=== PATIENT | female | born 1960 | race Caucasian/White ===

== ENCOUNTER 2016-11-07 09:40 | Day surgery (SDC) | payer OTHER ==
[2016-11-06 15:27] VITALS: BMI 24.6
[2016-11-07 10:46] VITALS: TEMP 97.5
[2016-11-07 11:10] VITALS: BP 102/60; PULSE 48
--- NOTE | 2016-11-08 14:17 | PATH ---
Surgical Pathology Report Patient Name: NATHANIEL RAMSAY [facility]. Rec. #: [id number] /Age/Gender: 1960 (Age: 56) / F Account: [id number] Location: ASU-ENDOSCOPY Taken: 11/07/2016 Received: 11/07/2016 Reported: 11/08/2016 Physicians: Loida Pleitez M.D. Specimen(s) Received BX RECTAL POLYP Clinical History History of adenoma Rectal polyp Final Diagnosis RECTUM, POLYP, BIOPSY: FRAGMENTS OF HYPERPLASTIC POLYP. Electronically Signed Peyman Mcarthur M.D. Gross Description Received in formalin, labeled "biopsy rectal polyp" are 2 sheets, irregular portions of soft tissue measuring 0.4 and 0.6 cm in greatest dimension. The specimens are submitted in toto in one cassette. /11/07/2016 saudi11/07/2016
== END 2016-11-07 12:10 | disposition home or self-care (01) ==
LOC: JASU-ENDO 09:40
PROVIDERS: ATTEND Internal Medicine Gastroenterology
PROC: 0DBP8ZX Excision of Rectum, Via Natural or Artificial Opening Endoscopic, Diagnostic (ICD-10-PCS; principal; 2016-11-07 10:00)
DX: Z86.010 Personal history of colon polyps (principal); K62.1 Rectal polyp
CPT/HCPCS: 88305-TC

== ENCOUNTER → 2019-05-25 | Day surgery (SDC) | payer OTHER ==
--- NOTE | 2019-05-29 16:43 | PATH ---
Surgical Pathology Report Patient Name: NATHANIEL RAMSAY [facility]. Rec. #: [id number] /Age/Gender: 1960 (Age: 58) / F Account: [id number] Location: RADIOLOGY INTER Taken: 05/25/2019 Received: 05/26/2019 Reported: 05/29/2019 Physicians: Wendy England M.D. Specimen(s) Received LEFT BREAST CORE BIOPSY Clinical History Mammographic findings/ultrasound findings: Highly suspicious/malignant 1.8 cm Final Diagnosis BREAST, LEFT, 11:00, ULTRASOUND GUIDED CORE BIOPSY: INVASIVE LOBULAR CARCINOMA, MODERATELY DIFFERENTIATED, CLASSICAL AND TRABECULAR TYPES, MEASURING AT LEAST 1 CM IN THIS MATERIAL. SEE COMMENT. Comment: Immunohistochemical stain performed and interpreted at [facility] show the invasive carcinoma have areas of weak cytoplasmic and focally weak membranous staining. This is seen in a subset of lobular carcinoma. Additional immunohistochemical stain performed at [place], [place] ([id number]) and interpreted at [facility] show strong cytoplasmic staining for p120. Overall histomorphology and immunophenotype are supportive of lobular differentiation. Case discussed with Dr. England. Results of Estrogen Receptor (ER) and Progesterone Receptor (MT) studies performed at [facility] are as follows: ER (clone [id number] mouse monoclonal antibody by [employer]): >95 % nuclear staining with strong intensity (Positive). MT (clone16 mouse monoclonal antibody by [employer]ica): ~2-3% nuclear staining with moderate intensity (Low Positive). Positive and negative controls (internal if applicable) show appropriate results. Formalin fixation and cold ischemic times are within current ASCO/CAP recommendations for ER, MT and Her2 testing. Results of Her2 (IHC) & Ki-67 studies performed at [facility] [place], [place] ([id number]) are as follows: Her2 IHC (EP3 from [employer], formerly known as [id number], using Britt Polymer Refine detection kit): 1+ (Negative). Ki-67: ~10% (Low proliferative index). Positive and negative controls (internal if applicable) show appropriate results. Electronically Signed Michelle Cui M.D. Gross Description Received in formalin labeled "left 11:00" are 3 sheets portions of fibroadipose tissue ranging from 0.7 x 0.2 x 0.1 cm to 0.9 x 0.3 x 0.2 cm. The specimens are submitted in toto in one cassette. Time to formalin fixation: Less than one minute Total formalin fixation time: Approximately 19 hours. 05/26/201905/26/2019
== END | disposition home or self-care (01) ==
LOC: JMAMMO-SUR 12:19
PROVIDERS: ATTEND Internal Medicine
PROC: 0HBU3ZX Excision of Left Breast, Percutaneous Approach, Diagnostic (ICD-10-PCS; principal; 2019-05-25)
DX: C50.912 Malignant neoplasm of unspecified site of left female breast (principal); N63.22 Unspecified lump in the left breast, upper inner quadrant
CPT/HCPCS: 19083; 77065-TC; 87899; 88305-TC; 88342-TC; A4648

== ENCOUNTER 2019-06-30 08:35 | Day surgery (SDC) | payer OTHER ==
[2019-06-26 11:15] VITALS: BMI 24.7
--- NOTE | 2019-06-29 12:54 | HP ---
Admitting History and Physical - Primary Care Physician PCP: Spike Allison - Admission Chief Complaint: left breast cancer History of Present Illness: Patient is a 58 yo female noted to have left breast mass on mammo and US at the 11 o'clock position approx 1.8 cm. 2 cm from the nipple. The patient underwent an US guided core bx on 05/25 which was c/w mod diff invasive lobular cancer ER pos PA psos. The patient had an MRi that was c/w known cancer as well as cystic mass between the dome of the liver and inferior right chest cage. CT scan was c/w a right pericardial cyst as well as a right lobe cyst. Patient is now presenting for a left breast WE, snbx and lymph with NL. History Source: Patient Limitations to Obtaining History: No Limitations - Past Medical History Renal/: Yes: Renal Calculi ...: No - Smoking History Smoking history: Never smoked Have you smoked in the past 12 months: No - Alcohol/Substance Use Hx Alcohol Use: Yes (SOCIALLY) Home Medications - Allergies Allergies/Adverse Reactions: Allergies Allergy/AdvReac Type Severity Reaction Status Date / Time No Known Allergies Allergy Verified 11/06/16 15:15 - Home Medications Home Medications: Ambulatory Orders Biotin 10 mg PO DAILY 06/26/19 Melatonin 10 mg PO HS 06/26/19 Multivitamins [Tab-A-Vit -] 1 tab PO DAILY 06/26/19 Family Medical History Family Hx Cancer: Mother (breast cancer at 70) Review of Systems - Review of Systems Constitutional: reports: No Symptoms Cardiovascular: reports: No Symptoms Respiratory: reports: No Symptoms Physical Examination Constitutional: Yes: Well Nourished, Calm Breast(s): Yes: Other (Moderately ptotic full C-cup breasts with some mild bruising noted in the left UIQ. Palpable 2 cm mass noted in the upper inner quad without any other suspicious masses or adenopathy noted.) Problem List - Problems (1) Breast cancer, left Code(s): C50.912 - MALIGNANT NEOPLASM OF UNSPECIFIED SITE OF LEFT FEMALE BREAST Qualifiers: Breast location: upper inner quadrant of breast Estrogen receptor status: positive Patient sex: female Qualified Code(s): C50.212 - Malignant neoplasm of upper-inner quadrant of left female breast; Z17.0 - Estrogen receptor positive status [ER+] Assessment/Plan Plan Left breast WE with NL, snbx, poss ANDx lympho
[2019-06-30] MEDS ORDERED: ISOSULFAN BLUE 10 MG/ML VIAL SQ ONE (14:17)
[2019-06-30] MEDS ORDERED: MIDAZOLAM HCL 2 MG/2 ML SINGLE DOSE VIAL ONE (14:44)
[2019-06-30] MEDS ORDERED: PROPOFOL 20 ML ONE ×2 (15:03)
[2019-06-30] MEDS ORDERED: ceFAZolin SODIUM 1 GM VIAL ONE ×2 (15:08)
[2019-06-30] MEDS ORDERED: BUPIVACAINE HCL 0.25% 125 MG/50 ML VIAL ONE (16:33)
[2019-06-30] MEDS ORDERED: GUM MASTIC/STORAX/MSAL/ALCOHOL 1 DRP DROPSBTL MC ONE (16:38)
[2019-06-30] MEDS ORDERED: BUPIVACAINE HCL/PF 0.25% (2.5MG/ML) 10 ML VIAL IJ ONE (16:43)
[2019-06-30] MEDS ORDERED: DEXAMETHASONE SOD PHOSPHATE 4 MG/1 ML VIAL ONE (16:45)
[2019-06-30] MEDS ORDERED: ONDANSETRON 4 MG/2 ML VIAL ONE ×2 (16:45→17:05)
[2019-06-30] MEDS ORDERED: oxyCODONE HCL 5 MG TABLET PO PRN ×2 (16:59)
[2019-06-30] MEDS ORDERED: PROMETHAZINE HCL 25 MG/1 ML VIAL IVPUSH PRN (16:59)
[2019-06-30] MEDS ORDERED: ONDANSETRON 4 MG/2 ML VIAL IVPUSH PRN ×2 (16:59→17:07)
[2019-06-30] MEDS ORDERED: KETOROLAC TROMETHAMINE 30 MG/1 ML VIAL IVPUSH PRN (17:07)
[2019-06-30] MEDS ORDERED: DEXTROSE 5%-0.45% SALINE 1,000 ML IV SCH (17:15)
[2019-06-30] MEDS ORDERED: KETOROLAC TROMETHAMINE 30 MG/1 ML VIAL ONE (17:15)
[2019-06-30] MEDS ORDERED: oxyCODONE HCL 5 MG TABLET ONE (17:52)
[2019-06-30 17:55] VITALS: TEMP 98.5
[2019-06-30 18:35] VITALS: BP 143/73; PULSE 90
--- NOTE | 2019-06-30 20:13 | OP ---
DATE OF OPERATION: 06/30/2019 PREOPERATIVE DIAGNOSIS: Left breast cancer, upper inner quadrant. POSTOPERATIVE DIAGNOSIS: Left breast cancer, upper inner quadrant. PROCEDURE: Left breast partial mastectomy with mammographic needle localization and left axillary sentinel lymph node biopsy with 5 x 4 cm tissue transfer closure. ANESTHESIA: Laryngeal mask airway anesthesia. PRIMARY SURGEON: Bernardo Allison MD SEAT MAKER: JENNA Turner COMPLICATIONS: There were no complications. DESCRIPTION OF PROCEDURE: Briefly, the patient is a 58-year-old G1, P0, postmenopausal female of [place] descent with a family history with her mother who had breast cancer in her 70s. The patient was felt to have a left breast upper inner quadrant mass, which was then confirmed on mammography and ultrasound on May 13, 2019, with a 1.8 x 1.8 x 1.6 cm mass in the left breast upper inner quadrant 2 cm from the nipple. Ultrasound guided core biopsy performed in May 2019 showed a moderately differentiated invasive lobular cancer, which was ER/[place] negative, HER2/christelle negative. Patient had an MRI, which did show a pericardial cyst, which was benign. She was offered entrance into the target B trial and agreed and was randomized external beam radiation. The patient is brought in for the procedure on June 30, 2019. She first underwent a lymphoscintigraphy with a periareolar injection of technetium 99 performed at [facility] prior to procedure. She then underwent a needle localization of the cancer in the left breast upper inner quadrant. She was brought to the [place] holding area. In the holding area, site verification was made, and informed consent was obtained. She was brought into the operating room and laid on the OR table in the supine position. Venodynes were placed on the lower extremities prior to induction. She received 2 g of Ancef prior to incision. She underwent general laryngeal mask airway anesthesia. The left breast was thoroughly prepped and draped in the usual fashion with the wire prepped in the field, and 3 mL of Lymphazurin blue were injected intradermally around the left breast nipple areolar complex. Timeout was performed. At this point, the left axillary sentinel lymph node biopsy was first performed. An incision was made just below the hair-bearing area of the left axilla, and dissection was undertaken, and blue lymphatic was easily seen coursing to a blue hot lymph node in the level 1 region of the left axilla with a 10-second gamma count of 1259. The 2nd adjacent lymph node was seen to this in the level 1 region with a 10-second gamma count of 362. Both of these nodes were also blue, grossly negative, and sent to pathology in formalin for permanent section. Background count after removal of these 2 nodes was 13, and there were no other blue or hot nodes found. Hemostasis was achieved, and the axilla wound was closed using interrupted 2-0 plain suture, and then an interrupted 3-0 deep dermal Vicryl suture, and a running 4-0 subcuticular Biosyn suture. At this point, the wide excision was undertaken around the upper inner aspect of the left breast through a periareolar incision around the upper inner periareolar border. Dissection was undertaken around the needle localization site, and the breast tissue was completely removed from around the wire, all the way down to the pectoralis major muscle. The specimen was removed and oriented with the long lateral, short superior suture, and specimen radiograph showed removal of the clip in question. At this point, separate margins were taken on the superior, inferior, medial, lateral, deep, and anterior margins with a suture marking the biopsy cavity side. All margins were sent separately to pathology in formalin. At this point, a 5 x 4 cm tissue transfer closure was accomplished by undermining the breast tissue and bringing it into the defect. The breast tissue was reapproximated using 2-0 plain suture. The skin was closed using interrupted 3-0 deep dermal Vicryl suture and a running 4-0 subcuticular Biosyn suture. Mastisol and Steri-Strips were applied over the axillary wound and the breast wound, and she was placed in a surgical bra postoperatively. The patient tolerated the procedure well without difficulty, and estimated blood loss was minimal, and all sponge and needle counts were correct at the end of the case. The patient will be recovered in the post anesthesia care unit and discharged home until discharge criteria are met. She is to follow up in the office in 1 week for formal wound pathology check. BERNARDO ALLISON M.D. [id number]
--- NOTE | 2019-07-03 10:56 | PATH ---
Surgical Pathology Report Patient Name: NATHANIEL RAMSAY Med. Rec. #: [id number] /Age/Gender: 1960 (Age: 58) / F Account: [id number] Location: [facility] Taken: 06/30/2019 Received: 06/30/2019 Reported: 07/03/2019 Physicians: Spike Allison M.D. Specimen(s) Received A: LEFT AXILLARY SENTINEL NODE #1 B: LEFT AXILLARY SENTINEL NODE #2 C: LEFT BREAST WIDE EXCISION D: LEFT BREAST SUPERIOR MARGIN E: LEFT BREAST LATERAL MARGIN F: LEFT BREAST INFERIOR MARGIN G: LEFT BREAST MEDIAL MARGIN H: LEFT BREAST DEEP MARGIN I: LEFT BREAST ANTERIOR MARGIN Clinical History Left breast upper inner quadrant ILC Final Diagnosis A. LEFT BREAST AXILLARY SENTINEL LYMPH NODE #1, EXCISION: ONE LYMPH NODE, NEGATIVE FOR METASTATIC CARCINOMA ON H&E STAIN SECTIONS AND CYTOKERATIN AE1/AE3 IMMUNOSTAINS PERFORMED AT [facility] (0/1). B. LEFT AXILLARY SENTINEL LYMPH NODE #2, EXCISION: ONE LYMPH NODE, NEGATIVE FOR METASTATIC CARCINOMA ON H&E STAIN SECTIONS AND CYTOKERATIN AE1/AE3 IMMUNOSTAINS PERFORMED AT [facility] (0/1). C. LEFT BREAST, WIDE EXCISION: INVASIVE LOBULAR CARCINOMA, SHOWING TRABECULAR, SOLID AND FOCAL PLEOMORPHIC FEATURES, MODERATELY DIFFERENTIATED (TUBULE SCORE 3/3, NUCLEAR GRADE: 2/3, MITOTIC SCORE: 2/3, TOTAL SCORE 7/9, TOLU GRADE 2), MEASURING 2.1 CM IN GREATEST DIMENSION, MICROSCOPICALLY. LOBULAR CARCINOMA IN SITU (LCIS) PRESENT, CLASSICAL TYPE. SURGICAL MARGINS ARE UNINVOLVED BY CARCINOMA. INVASIVE CARCINOMA IS AT LESS THAN 1 MM FROM THE CLOSEST (ANTERIOR) MARGIN. ALSO SEE SPECIMENS D TO I FOR FINAL MARGINS. NO LYMPHOVASCULAR INVASION IS IDENTIFIED. PERINEURAL INVASION IDENTIFIED. PRIOR BIOPSY SITE WITH REACTIVE CHANGES. PATHOLOGIC STAGE (pTNM): pT2, pN(sn)0 SEE ALSO INVASIVE CARCINOMA CASE SUMMARY BELOW. Comment: Immunohistochemical stain E-Cadherin (block C1) performed and interpreted at [facility] shows complete or focal loss of the membranous staining in the carcinoma, supports lobular phenotype. D. LEFT BREAST SUPERIOR MARGIN, EXCISION: BREAST TISSUE WITH FOCAL ATYPICAL LOBULAR HYPERPLASIA. NEGATIVE FOR CARCINOMA. E. LEFT BREAST LATERAL MARGIN, EXCISION: BENIGN BREAST TISSUE. F. LEFT BREAST INFERIOR MARGIN, EXCISION: BENIGN BREAST TISSUE. G. LEFT BREAST MEDIAL MARGIN, EXCISION: BENIGN BREAST TISSUE. H. LEFT BREAST DEEP MARGIN, EXCISION: BENIGN BREAST TISSUE. I. LEFT BREAST ANTERIOR MARGIN, EXCISION: BENIGN BREAST TISSUE. Comments Breast Invasive Carcinoma: Surgical Pathology Case Summary (Based on AJCC TNM 8 th edition) Procedure _x_ Excision (less than total mastectomy) Specimen Laterality _x_ Left Tumor Size _x_ Greatest dimension of largest invasive focus >1 mm (millimeters): 21mm Histologic Type _x_ Invasive lobular carcinoma Histologic Grade (Tolu Histologic Score) Glandular (Acinar)/Tubular Differentiation _x_ Score 3 (<10% of tumor area forming glandular/tubular structures) Nuclear Pleomorphism _x_ Score 2 Mitotic Rate _x_ Score 2 Overall Grade _x_ Grade 2 (scores of 6 or 7) Tumor Focality _x_ Single focus of invasive carcinoma Ductal Carcinoma In Situ (DCIS) _x_ No DCIS in specimen Margins Invasive Carcinoma Margins _x_ Uninvolved by invasive carcinoma Distance from closest margin (millimeters): > 1mm Closest margin: Invasive carcinoma is at less than 1 mm from anterior margin in the wide excision (specimen C). Additional anterior margin (specimen I) is negative for carcinoma. DCIS Margins _x_ No DCIS in specimen Regional Lymph Nodes _x_ Uninvolved by tumor cells Number of Lymph Nodes Examined: 2 Number of [place] Nodes Examined: 2 Treatment Effect _x_ No known presurgical therapy Lymphovascular Invasion _x_ Not identified Pathologic Stage Classification (pTNM, AJCC 8th Edition) Primary Tumor (Invasive Carcinoma) (pT) _x_ pT2: Tumor >20 mm but =50 mm in greatest dimension Regional Lymph Nodes (pN) Category (pN) _x_ pN(sn)0: No regional lymph node metastasis identified or ITCs only Biomarker Studies Results of ER and ME studies performed on prior biopsy ([id number]) at [facility] are as follows: ER (clone [id number] mouse monoclonal antibody by [employer]): >95% nuclear staining with strong intensity (positive). ME (clone16 mouse monoclonal antibody by [employer]): ~2-3% nuclear staining with moderate intensity (low positive). Results of Her2 (IHC) & Ki-67 studies performed on prior biopsy ([id number]) at [place], [place] ([id number]) are as follows: Her2 IHC (EP3 from [employer], formerly known as [id number], using Britt Polymer Refine detection kit): 1+ (Negative) Ki67: ~10% (low proliferative index) Electronically Signed Gaviota Krueger M.D. Gross Description A. Received in formalin labeled "left axillary sentinel node #1," is a 1.0 x 0.7 x 0.3 cm lymph node. The specimen is submitted in toto in one cassette. B. Received in formalin labeled "left axillary sentinel node #2," is a 0.7 x 0.5 x 0.2 cm lymph node. The specimen is submitted in toto in one cassette. C. Received in formalin, labeled "left breast wide excision," is a 4.0 x 3.8 x 2.5 cm. sheets-yellow, irregular, portion of fibroadipose tissue with a needle localization wire present. There is a short suture marking the superior aspect and a long suture marking the lateral aspect, per the surgeon. There is no skin or nipple present. The specimen is inked as follows: superior and lateral blue; inferior green; medial yellow; anterior red; deep black. The specimen is serially sectioned from lateral to medial. Sectioning reveals a 1.9 x 1.4 x 1.3 cm sheets, indurated mass the mass focally abuts the anterior margin and is 0.3 cm from the medial margin, 0.4 cm from the deep margin, 0.5 cm from the inferior margin and 0.7 cm from the superior margin. [employer] sections are submitted in 7 cassettes as follows: 1-3-one full face section of mass each (each with anterior and deep margins); 4-medial margin; 5-lateral margin; 6-inferior margin; 7-superior margin. Time to formalin fixation: 2 minutes Total formalin fixation time: Approximately 26 hours. D. Received in formalin labeled "left breast superior margin," is a 2.8 x 1.7 x 1.3 cm portion of fibroadipose tissue with a suture marking the biopsy cavity side, per the surgeon. The new margin is inked blue and the specimen is serially sectioned. The specimen is entirely submitted in 3 cassettes. E. Received in formalin labeled "left breast lateral margin," is a 2.0 x 1.6 x 0.4 cm portion of fibroadipose tissue with a suture marking the biopsy cavity side, per the surgeon. The new margin is inked blue and the specimen is serially sectioned. The specimen is entirely submitted in 2 cassettes. F. Received in formalin labeled "left breast inferior margin," is a 2.2 x 1.6 x 0.8 cm portion of fibroadipose tissue with a suture marking the biopsy cavity side, per the surgeon. The new margin is inked blue and the specimen is serially sectioned. The specimen is entirely submitted in 2 cassettes. G. Received in formalin labeled "left breast medial margin," is a 2.4 x 1.9 x 0.6 cm portion of fibroadipose tissue with a suture marking the biopsy cavity side, per the surgeon. The new margin is inked blue and the specimen is serially sectioned. The specimen is entirely submitted in 2 cassettes. H. Received in formalin labeled "left breast deep margin," is a 2.7 x 2.3 x 1.3 cm portion of fibroadipose tissue with a suture marking the biopsy cavity side, per the surgeon. The new margin is inked blue and the specimen is serially sectioned. The specimen is entirely submitted in 3 cassettes. I. Received in formalin labeled "left breast anterior margin," is a 2.3 x 1.3 x 0.8 cm portion of fibroadipose tissue with a suture marking the biopsy cavity side, per the surgeon. The new margin is inked blue and the specimen is serially sectioned. The specimen is entirely submitted in 2 cassettes. 07/01/2019 saudi07/01/2019
== END 2019-06-30 18:40 | disposition home or self-care (01) ==
LOC: FASU 08:35
PROVIDERS: ATTEND Surgery Surgical Oncology
PROC: 0HBU0ZZ Excision of Left Breast, Open Approach (ICD-10-PCS; principal; 2019-06-30 15:21)
PROC: 0JX60ZC Transfer Chest Subcutaneous Tissue and Fascia with Skin, Subcutaneous Tissue and Fascia, Open Approach (ICD-10-PCS; 2019-06-30 15:21)
DX: C50.212 Malignant neoplasm of upper-inner quadrant of left female breast (principal); Z17.0 Estrogen receptor positive status [ER+]; Z80.3 Family history of malignant neoplasm of breast
CPT/HCPCS: 19281; 76098-TC-FY; 78195-TC; 88307-TC; 88342-TC; 94760; A9541